=== PATIENT | female | born 1980 | race African-American/Black ===

== ENCOUNTER 2018-01-01 02:04 | Inpatient (IN) | payer SELFPAY ==
[~2018-01-01] VITALS: Ht 165.1 cm; Wt 110.2 kg
[2018-01-01] VITALS (10 sets, daily range): BP systolic 102–137; BP diastolic 52–86
[2018-01-01] MEDS ORDERED: SODIUM CHLORIDE 0.9% 1,000 ML IV ONE (03:03)
[2018-01-01] MEDS ORDERED: KETOROLAC 30MG/ML VIAL IV ONE (03:15)
[2018-01-01] MEDS ORDERED: ONDANSETRON HCL 4MG/2ML VIAL IV ONE ×2 (03:15→05:00)
[2018-01-01 03:42] LABS: BASOPHILS % 0.5 % (0.0-2.0); EOSINOPHILS % 0.6 % (0.0-5.0); LYMPHOCYTES % 12.2 % (20.0-50.0); MEAN CORPUSCULAR VOLUME 68.2 fL (81.0-99.0); MEAN PLATELET VOLUME 8.2 fl (7.4-10.4); MONOCYTES % 6.2 % (2.0-8.0); NEUTROPHILS % 80.5 % (40.0-76.0); PLATELET 232 x1000/uL (130-400); RED BLOOD CELL COUNT 2.95 mill/uL (4.2-5.4)
[2018-01-01 03:46] LABS: HEMOGLOBIN. 6.2 g/dL (12.0-16.0)
[2018-01-01 03:47] LABS: CHLORIDE 108 mEq/L (98-107); HEMATOCRIT. 20.1 % (36.0-48.0)
[2018-01-01 03:48] LABS: HCG SCREEN NEGATIVE
[2018-01-01 03:49] LABS: INR 1.1; PARTIAL THROMBOPLASTIN TIME 21.3 sec (23.4-31.0); PROTHROMBIN TIME 11.4 sec (9.4-11.6)
[2018-01-01 04:27] LABS: PLATELET ESTIMATE NORMAL
[2018-01-01] MEDS ORDERED: MORPHINE SULFATE 4 MG/ML CPJ (NOT FOR IM USE) IV ONE (05:00)
[2018-01-01] MEDS ORDERED: MORPHINE SULFATE 4 MG/ML CPJ (NOT FOR IM USE) IV STA (10:48)
[2018-01-01] MEDS ORDERED: ONDANSETRON HCL 4MG/2ML VIAL IV STA (11:06)
[2018-01-01] MEDS ORDERED: SODIUM CHLORIDE 0.9% 1,000 ML IV SCH (16:52)
[2018-01-01] MEDS ORDERED: ONDANSETRON HCL 4MG/2ML VIAL IV PRN (17:00)
[2018-01-01] MEDS ORDERED: MAGNESIUM/ALUMINUM HYDROXIDE/SIMETHICONE 30ML UDC PO PRN (17:00)
[2018-01-01] MEDS ORDERED: DIPHENHYDRAMINE 50MG/ML VIAL IV PRN (17:00)
[2018-01-01 18:29] LABS: MEAN CORPUSCULAR HEMOGLOBIN 22.6 pg (28.0-32.0); MEAN CORPUSCULAR VOLUME 73.8 fL (81.0-99.0); PLATELET 219 x1000/uL (130-400); RED BLOOD CELL COUNT 2.74 mill/uL (4.2-5.4); RED CELL DISTRIBUTION WIDTH 23.8 % (11.6-14.6)
[2018-01-01 18:35] LABS: HEMOGLOBIN 6.2 g/dL (12.0-16.0)
[2018-01-01 18:36] LABS: HEMATOCRIT 20.2 % (36.0-48.0)
[2018-01-01 18:43] LABS: TOTAL IRON BINDING CAPACITY 454 ug/dL (250-450)
[2018-01-01] MEDS: ACETAMINOPHEN 325MG TABLET PO PRN (19:50)
[2018-01-01] MEDS ORDERED: PROG100C5 PO (20:15)
[2018-01-02] VITALS (13 sets, daily range): BP systolic 103–125; BP diastolic 53–74
[2018-01-02] MEDS: ACETAMINOPHEN 325MG TABLET PO PRN ×3 (00:31→20:26)
[2018-01-02 07:16] LABS: HEMATOCRIT 21.3 % (36.0-48.0); HEMOGLOBIN 7.1 g/dL (12.0-16.0); MEAN CORPUSCULAR HEMOGLOBIN 24.6 pg (28.0-32.0); MEAN CORPUSCULAR VOLUME 74.1 fL (81.0-99.0); PLATELET 177 x1000/uL (130-400); RED BLOOD CELL COUNT 2.87 mill/uL (4.2-5.4); RED CELL DISTRIBUTION WIDTH 24.4 % (11.6-14.6)
[2018-01-02] MEDS: HYDROCODONE/APAP 7.5/325MG 1 TAB TABLET PO PRN ×3 (10:18→23:57)
[2018-01-02] MEDS ORDERED: IRON SUCROSE COMPLEX 100 MG/5 ML ML IV SCH (15:00)
[2018-01-02] MEDS: IRON SUCROSE COMPLEX 100 MG/5 ML ML IV SCH (21:00)
[2018-01-02 23:49] LABS: HEMATOCRIT 23.8 % (36.0-48.0); HEMOGLOBIN 7.9 g/dL (12.0-16.0)
[2018-01-03] VITALS: BP 110/63
[2018-01-03 04:00] VITALS: BP 147/82
[2018-01-03] MEDS: HYDROCODONE/APAP 7.5/325MG 1 TAB TABLET PO PRN ×3 (06:09→19:35)
[2018-01-03 07:25] LABS: HEMATOCRIT 22.5 % (36.0-48.0); HEMOGLOBIN 7.4 g/dL (12.0-16.0); MEAN CORPUSCULAR HEMOGLOBIN 25.2 pg (28.0-32.0); MEAN CORPUSCULAR VOLUME 76.5 fL (81.0-99.0); PLATELET 183 x1000/uL (130-400); RED BLOOD CELL COUNT 2.94 mill/uL (4.2-5.4); RED CELL DISTRIBUTION WIDTH 24.9 % (11.6-14.6)
[2018-01-03 08:00] VITALS: BP 127/73
[2018-01-03 14:57] VITALS: BP 115/59
[2018-01-03] MEDS: ACETAMINOPHEN 325MG TABLET PO PRN (15:20)
[2018-01-03 16:00] VITALS: BP 111/64
[2018-01-03 20:00] VITALS: BP 129/61
[2018-01-03] MEDS: IRON SUCROSE COMPLEX 100 MG/5 ML ML IV SCH (20:44)
[2018-01-03] MEDS ORDERED: LEVOFLOXACIN 500MG PREMIX 100 ML IV SCH (23:00)
[2018-01-04] VITALS: BP 110/55
[2018-01-04 00:05] LABS: CLARITY URINE CLEAR (CLEAR); COLOR URINE YELLOW (YELLOW); KETONES URINE NEGATIVE (NEGATIVE); LEUKOCYTE ESTERASE URINE NEGATIVE (NEGATIVE); NITRITE URINE NEGATIVE (NEGATIVE); OCCULT BLOOD URINE 2+ (NEGATIVE); PROTEIN URINE NEGATIVE (NEGATIVE); SPECIFIC GRAVITY URINE 1.009 (1.005-1.030); UROBILINOGEN URINE 0.2 E.U./dL (0.2-1.0)
[2018-01-04] MEDS: HYDROCODONE/APAP 7.5/325MG 1 TAB TABLET PO PRN ×3 (01:33→14:25)
[2018-01-04] MEDS: SODIUM CHLORIDE 0.9% 1,000 ML IV SCH ×2 (03:45→06:14)
[2018-01-04 04:00] VITALS: BP 115/57
[2018-01-04] MEDS ORDERED: PHENAZOPYRIDINE HCL 200MG TABLET PO SCH (07:40)
[2018-01-04 08:00] VITALS: BP 129/58
[2018-01-04 08:13] LABS: HEMATOCRIT. 24.8 % (36.0-48.0); HEMOGLOBIN. 7.9 g/dL (12.0-16.0); MEAN CORPUSCULAR HEMOGLOBIN 25.4 pg (28.0-32.0); MEAN CORPUSCULAR VOLUME 79.3 fL (81.0-99.0); MEAN PLATELET VOLUME 8.9 fl (7.4-10.4); PLATELET 193 x1000/uL (130-400); RED BLOOD CELL COUNT 3.12 mill/uL (4.2-5.4); RED CELL DISTRIBUTION WIDTH 26.4 % (11.6-14.6)
[2018-01-04 12:00] VITALS: BP 137/66
[2018-01-04] MEDS ORDERED: IRON SUCROSE COMPLEX 100 MG/5 ML ML IV SCH (13:00)
[2018-01-04 16:00] VITALS: BP 149/88
[2018-01-04] MEDS: ACETAMINOPHEN 325MG TABLET PO PRN (17:48)
[2018-01-04] MEDS ORDERED: PHENAZOPYRIDINE HCL 100MG TABLET PO SCH (18:10)
[2018-01-04] MEDS ORDERED: HYDROCODONE/APAP 7.5/325MG 1 TAB TABLET PO NR (19:42)
[2018-01-04 20:00] VITALS: BP 144/78
[2018-01-04 22:33] LABS: PLATELET ESTIMATE NORMAL
[2018-01-05] VITALS: BP 136/79
[2018-01-05] MEDS ORDERED: NA PHOS,M-B/NA PHOS,DI-BA ENEMA 118ML PR SCH (01:00)
[2018-01-05] MEDS ORDERED: BISACODYL 10MG SUPP PR PRN (01:00)
[2018-01-05] MEDS ORDERED: MAGNESIUM HYDROXIDE 400MG/5ML 30ML UDC PO PRN (01:00)
[2018-01-05] MEDS: IBUPROFEN 600MG TABLET PO PRN ×2 (02:37→10:43)
[2018-01-05 04:00] VITALS: BP 140/81
[2018-01-05 07:46] LABS: BASOPHILS % 0.4 % (0.0-2.0); EOSINOPHILS % 0.4 % (0.0-5.0); HEMATOCRIT. 25.6 % (36.0-48.0); HEMOGLOBIN. 8.1 g/dL (12.0-16.0); LYMPHOCYTES % 8.2 % (20.0-50.0); MEAN CORPUSCULAR HEMOGLOBIN 25.6 pg (28.0-32.0); MEAN CORPUSCULAR VOLUME 80.8 fL (81.0-99.0); MEAN PLATELET VOLUME 8.8 fl (7.4-10.4); MONOCYTES % 8.8 % (2.0-8.0); NEUTROPHILS % 82.2 % (40.0-76.0); PLATELET 225 x1000/uL (130-400); RED BLOOD CELL COUNT 3.17 mill/uL (4.2-5.4); RED CELL DISTRIBUTION WIDTH 28.5 % (11.6-14.6)
[2018-01-05] MEDS: FERROUS SULFATE 325MG TABLET PO SCH ×3 (08:23→18:00)
[2018-01-05 08:25] VITALS: BP 120/78
[2018-01-05 12:00] VITALS: BP 130/79
[2018-01-05 16:02] VITALS: BP 141/79
[2018-01-05 18:47] VITALS: BP 141/79
== END 2018-01-05 19:55 | disposition home or self-care (01) | DRG 532 ==
LOC: ER 02:10 → 8WST 05:53 → EDBEDREQ 06:21 → ENRESERV 15:20 → 8WST 01-04 17:46
PROVIDERS: ADMIT Internal Medicine; ATTEND Internal Medicine
PROC: 30233N1 Transfusion of Nonautologous Red Blood Cells into Peripheral Vein, Percutaneous Approach (ICD-10-PCS; principal; 2018-01-01)
DX: D25.9 Leiomyoma of uterus, unspecified (principal); E43 Unspecified severe protein-calorie malnutrition; R65.10 Systemic inflammatory response syndrome (SIRS) of non-infectious origin without acute organ dysfunction; D64.9 Anemia, unspecified; E61.1 Iron deficiency; F17.200 Nicotine dependence, unspecified, uncomplicated; N39.0 Urinary tract infection, site not specified; N92.1 Excessive and frequent menstruation with irregular cycle; Z82.49 Family history of ischemic heart disease and other diseases of the circulatory system; Z79.899 Other long term (current) drug therapy; Z84.89 Family history of other specified conditions; Z68.41 Body mass index [BMI] 40.0-44.9, adult
CPT/HCPCS: 36415; 71045; 72170; 76830; 76856; 80053; 81003; 83540; 83550; 84703; 85014; 85018; 85025; 85027; 85610; 85730; 86850; 86900; 86920; 87040; 87077; 87086; 96374; 96375; 96376; 97162; 97530; 99285; J1200; J1885; J1956; J2270; J2405; J7030; J7040; P9016

== ENCOUNTER 2019-08-29 07:21 | Inpatient (IN) | payer OTHER ==
[~2019-08-29] VITALS: Ht 167.6 cm; Wt 109.8 kg
[2019-08-29] MEDS ORDERED: LACTATED RINGERS 1,000 ML IV SCH (08:15)
[2019-08-29] MEDS ORDERED: METHYLENE BLUE 50 MG/10 ML AMP IV ONE ×2 (08:22→10:04)
[2019-08-29] MEDS ORDERED: VASOPRESSIN 20 UNIT/ML 1ML ONE (08:22)
[2019-08-29 08:26] LABS: BASOPHILS % 2.3 % (0.0-2.0); EOSINOPHILS % 7.9 % (0.0-5.0); HEMATOCRIT. 38.5 % (36.0-48.0); HEMOGLOBIN. 12.1 g/dL (12.0-16.0); LYMPHOCYTES % 31.8 % (20.0-50.0); MEAN CORPUSCULAR HEMOGLOBIN 25.8 pg (28.0-32.0); MEAN CORPUSCULAR VOLUME 81.7 fL (81.0-99.0); MEAN PLATELET VOLUME 9.5 fl (7.4-10.4); MONOCYTES % 9.5 % (2.0-8.0); NEUTROPHILS % 48.5 % (40.0-76.0); PLATELET 251 x1000/uL (130-400); RED BLOOD CELL COUNT 4.71 mill/uL (4.2-5.4); RED CELL DISTRIBUTION WIDTH 26.8 % (11.6-14.6)
[2019-08-29 08:29] LABS: CLARITY URINE CLEAR (CLEAR); COLOR URINE YELLOW (YELLOW); KETONES URINE NEGATIVE (NEGATIVE); LEUKOCYTE ESTERASE URINE NEGATIVE (NEGATIVE); NITRITE URINE NEGATIVE (NEGATIVE); OCCULT BLOOD URINE NEGATIVE (NEGATIVE); PROTEIN URINE NEGATIVE (NEGATIVE); SPECIFIC GRAVITY URINE 1.028 (1.005-1.030); UROBILINOGEN URINE 0.2 E.U./dL (0.2-1.0)
[2019-08-29 08:30] LABS: CHLORIDE 111 mEq/L (98-107)
[2019-08-29 08:32] LABS: PARTIAL THROMBOPLASTIN TIME 26.8 sec (23.4-31.0); PROTHROMBIN TIME 10.7 sec (9.6-11.0)
[2019-08-29 08:33] LABS: UCG SCREEN NEGATIVE
[2019-08-29] MEDS ORDERED: DOCU-150 MT (08:38)
[2019-08-29] MEDS ORDERED: MELO-106 PO (08:38)
[2019-08-29] MEDS ORDERED: FERR325T6 PO (08:38)
[2019-08-29] MEDS ORDERED: ACET-2708 PO (08:38)
[2019-08-29] MEDS ORDERED: MEDR10TA PO (08:38)
[2019-08-29] MEDS ORDERED: FENTANYL CITRATE/PF 50MCG/ML 2ML VIAL ONE ×4 (09:17→11:19)
[2019-08-29] MEDS ORDERED: NEOSTIGMINE METHYLSULFATE 1MG/ML 10 ML VIAL ONE (09:17)
[2019-08-29] MEDS ORDERED: PROPOFOL 200MG/20ML VIAL IV ONE (09:17)
[2019-08-29] MEDS ORDERED: MIDAZOLAM HCL 2 MG/2 ML VIAL ONE (09:17)
[2019-08-29] MEDS ORDERED: ROCURONIUM BROMIDE 10MG/ML VIAL 5ML IV ONE (09:17)
[2019-08-29] MEDS ORDERED: LIDOCAINE HCL/PF 1% 10 MG/ML 5ML VIAL ONE (09:18)
[2019-08-29] MEDS ORDERED: SUCCINYLCHOLINE CHLORIDE 200MG/10ML IV ONE ×2 (09:18→11:49)
[2019-08-29] MEDS ORDERED: GLYCOPYRROLATE 0.2 MG/ML 2ML VIAL ONE (09:18)
[2019-08-29] MEDS ORDERED: DEXAMETHASONE 4MG/ML 1ML VIAL ONE (09:18)
[2019-08-29] MEDS ORDERED: SODIUM CHLORIDE 0.9% 10ML VIAL ONE (09:18)
[2019-08-29] MEDS ORDERED: METOCLOPRAMIDE HCL 10MG/2ML VIAL ONE (09:18)
[2019-08-29] MEDS ORDERED: EPHEDRINE SULFATE 50MG/ML VIAL ONE (09:18)
[2019-08-29] MEDS ORDERED: ONDANSETRON HCL 4MG/2ML INJ ONE (09:18)
[2019-08-29] MEDS ORDERED: CEFAZOLIN SODIUM 1000MG/VIAL ONE (09:18)
[2019-08-29] MEDS ORDERED: SODIUM CHLORIDE 0.9% 1,000 ML IV ONE (12:33)
[2019-08-29] MEDS ORDERED: ONDANSETRON HCL 4MG/2ML INJ IV PRN (12:45)
[2019-08-29] MEDS ORDERED: MEPERIDINE HCL/PF 25MG/ML CPJ IV PRN ×2 (12:45)
[2019-08-29] MEDS ORDERED: MORPHINE SULFATE 2 MG/ML CPJ (NOT FOR IM USE) IV PRN (12:45)
[2019-08-29 13:38] LABS: PLATELET ESTIMATE NORMAL
[2019-08-29] MEDS: HYDROMORPHONE HCL/PF 2MG/ML CPJ IV PRN ×5 (13:51→17:10)
[2019-08-29 16:00] VITALS: BP 126/83
[2019-08-29 20:00] VITALS: BP 143/89
[2019-08-29] MEDS: HYDROCODONE/ACETAMINOPHEN 5/325MG TABLET PO PRN (20:08)
[2019-08-29] MEDS: DEXT 5%/LACTATED RINGERS 1,000 ML IV SCH (20:20)
[2019-08-29] MEDS: IBUPROFEN 600MG TABLET PO PRN (22:12)
[2019-08-30] VITALS: BP 127/74
[2019-08-30] MEDS: HYDROCODONE/ACETAMINOPHEN 5/325MG TABLET PO PRN ×4 (01:58→21:31)
[2019-08-30 04:00] VITALS: BP 117/64
[2019-08-30] MEDS: IBUPROFEN 600MG TABLET PO PRN ×2 (05:50→23:29)
[2019-08-30 08:00] VITALS: BP 132/64
[2019-08-30 12:00] VITALS: BP 113/51
[2019-08-30] MEDS: DEXT 5%/LACTATED RINGERS 1,000 ML IV SCH ×2 (12:17→20:54)
[2019-08-30 16:00] VITALS: BP 136/75
[2019-08-30 20:00] VITALS: BP 117/76
[2019-08-31] VITALS: BP 150/77
[2019-08-31] MEDS: HYDROCODONE/ACETAMINOPHEN 5/325MG TABLET PO PRN ×4 (01:51→19:47)
[2019-08-31 04:00] VITALS: BP 123/72
[2019-08-31 08:00] VITALS: BP 124/70
[2019-08-31] MEDS ORDERED: NA PHOS,M-B/NA PHOS,DI-BA ENEMA 118ML PR NR (10:45)
[2019-08-31 12:00] VITALS: BP_SYST 128; BP_DIAS 70; BP_DIAS 82
[2019-08-31 16:00] VITALS: BP 122/70
[2019-08-31] MEDS: DOCUSATE SODIUM 100MG CAPSULE PO SCH (16:04)
[2019-08-31 20:00] VITALS: BP 130/64
[2019-09-01] VITALS: BP 104/65
[2019-09-01] MEDS: HYDROCODONE/ACETAMINOPHEN 5/325MG TABLET PO PRN ×3 (00:01→09:23)
[2019-09-01 04:00] VITALS: BP 124/73
[2019-09-01 06:30] VITALS: BP 124/73
[2019-09-01 08:00] VITALS: BP 134/67
[2019-09-01] MEDS: DOCUSATE SODIUM 100MG CAPSULE PO SCH (09:13)
[2019-09-01 10:57] VITALS: BP 134/67
== END 2019-09-01 12:47 | disposition home or self-care (01) | DRG 743 ==
LOC: OR 07:21 → 6EST 17:52
PROVIDERS: ADMIT Obstetrics & Gynecology Obstetrics; ATTEND Obstetrics & Gynecology Obstetrics
PROC: 0UB90ZZ Excision of Uterus, Open Approach (ICD-10-PCS; principal; 2019-08-29)
PROC: 0UB90ZZ Excision of Uterus, Open Approach (ICD-10-PCS; 2019-08-29)
PROC: 3E0P3GC Introduction of Other Therapeutic Substance into Female Reproductive, Percutaneous Approach (ICD-10-PCS; 2019-08-29)
DX: D25.9 Leiomyoma of uterus, unspecified (principal); N80.0 Endometriosis of uterus; D64.9 Anemia, unspecified; Z82.49 Family history of ischemic heart disease and other diseases of the circulatory system
CPT/HCPCS: 36415; 80048; 81003; 81025; 86850; 86900; 88305; J0330; J0690; J1100; J1170; J2175; J2250; J2405; J2704; J2710; J2765; J3010; J3490; J7121; Q9968